=== PATIENT | male | born 1940 | race Caucasian/White ===

== ENCOUNTER 2017-02-23 23:38 | Emergency (ER) | payer OTHER ==
[~2017-02-23] VITALS: Ht 180.3 cm; Wt 127.2 kg
[~2017-02-23 23:38] MED LIST: ASPIRIN81 M1 PO; FLOMAX0.4 MG PO; IRON18 MG PO; LIPITOR5 MG PO; MULTIVITAMIN1 EAC2 PO; Percocet 5/325,Endoc PO; VITAMIN A8000 UNIT PO; VITAMIN D400 UNIT PO
[2017-02-24 02:19] VITALS: BP 150/70
== END 2017-02-24 02:20 | disposition home or self-care (01) ==
LOC: EME → EDBD 23:38 → EME 23:38
DX: S01.01XA Laceration without foreign body of scalp, initial encounter (principal); S09.90XA Unspecified injury of head, initial encounter; W18.30XA Fall on same level, unspecified, initial encounter; Y99.0 Civilian activity done for income or pay; E78.5 Hyperlipidemia, unspecified; E11.9 Type 2 diabetes mellitus without complications; Z98.84 Bariatric surgery status; Z79.82 Long term (current) use of aspirin
CPT/HCPCS: 70450; 70486; 72125; 99281; 99284